=== PATIENT | female | born 1955 | race African-American/Black ===

== ENCOUNTER 2018-05-05 14:40 | Emergency (ER) | payer MEDICAID ==
[~2018-05-05] VITALS: Ht 172.7 cm; Wt 72.6 kg
[~2018-05-05 14:40] MED LIST: ACYCLOVIR 200200 MG PO; ALBUTEROL INH; CELEXA40 MG PO; FENOFIBRATE160 MG PO; LORAZEPAM 0.50.5 MG PO; NAPROSYN500 MG PO; PEPCID40 MG PO; PERCOCET 5-3251 EACH PO; PRAVASTATIN SOD10 MG; RANITIDINE 150150 MG PO; TESSALON PERLE100 M1 PO; TRICOR48 MG PO; ZOFRAN ODT4 MG BUCCAL
[2018-05-05] MEDS ORDERED: CYMBALTA30 MG PO (14:57)
[2018-05-05] MEDS ORDERED: CLARITIN10 MG PO (14:58)
[2018-05-05 15:28] LABS: ABSOLUTE EOSINOPHILS 0.2 thou/uL (0.0-0.7); ABSOLUTE LYMPHOCYTES 1.6 thou/uL (0.8-5.3); ABSOLUTE MONOCYTES 0.7 thou/uL (0.0-1.2); ABSOLUTE NEUTROPHILS 3.1 thou/uL (1.6-8.1); BASOPHILS 0.7 %; EOSINOPHILS 3.6 %; HEMATOCRIT 38.4 % (37.0-47.0); HEMOGLOBIN 13.1 gm/dL (12.0-15.0); LYMPHOCYTES 28.3 %; MCH 29.9 pg (26.0-34.0); MCV 88.1 fL (80.0-100.0); MONOCYTES 12.5 %; NUCLEATED RBCS 0 /100WBC; PLATELET COUNT* 245 thou/uL (150-400); POLYS 54.9 %; RBC 4.36 mil/uL (4.20-5.00); RDW-CV 12.9 % (10.5-14.5); WBC 5.7 thou/uL (4.0-11.0)
[2018-05-05 15:37] LABS: APTT 25.5 Seconds (25.0-31.3); PROTIME 10.2 Seconds (9.20-11.50)
[2018-05-05 15:43] LABS: CALCIUM 8.7 mg/dL (8.5-10.1); CREATININE 0.7 mg/dL (0.6-1.3); POTASSIUM 3.9 mmol/L (3.5-5.1)
[2018-05-05 15:48] LABS: ALBUMIN 3.8 g/dL (3.4-5.0); TOTAL BILIRUBIN 0.5 mg/dL (<0.1-1.0); TOTAL PROTEIN 7.5 g/dL (6.4-8.2)
[2018-05-05] MEDS ORDERED: ROBAXIN500 MG PO (16:29)
[2018-05-05 16:36] VITALS: BP 150/93
== END 2018-05-05 16:37 | disposition home or self-care (01) ==
LOC: M.ERS 14:40
PROVIDERS: Nurse Practitioner Family
DX: S20.01XA Contusion of right breast, initial encounter (principal); S50.02XA Contusion of left elbow, initial encounter; E78.00 Pure hypercholesterolemia, unspecified; K21.9 Gastro-esophageal reflux disease without esophagitis; F32.9 Major depressive disorder, single episode, unspecified; M79.7 Fibromyalgia; F41.9 Anxiety disorder, unspecified; K58.9 Irritable bowel syndrome, unspecified; Z98.890 Other specified postprocedural states; Z88.8 Allergy status to other drugs, medicaments and biological substances; M19.90 Unspecified osteoarthritis, unspecified site; W01.0XXA Fall on same level from slipping, tripping and stumbling without subsequent striking against object, initial encounter; Y93.89 Activity, other specified; Y92.89 Other specified places as the place of occurrence of the external cause; Y99.8 Other external cause status

== ENCOUNTER 2019-02-07 00:02 | Inpatient (IN) | payer MEDICAID ==
[~2019-02-07] VITALS: Ht 170.2 cm; Wt 72.9 kg
--- NOTE | ~2019-02-07 | PROC ---
[facility] [address] [facility] [place] [address] PROCEDURE REPORT Name: NAVEEN BACA Room: [address] IN M.R.#: [id number] Admission: 02/07/19 Attend Phys: Purnima Fonseca Discharge: 02/11/19 Date of : 57 Report #: [id number] THIS REPORT FOR: //name// For GI report, please see the Provation report in Perceptive 7 content. By: [facility] Center[facility] Records Staff JIM /SHERICE
[~2019-02-07 00:02] MED LIST changes: +CLARITIN10 MG PO; +CYMBALTA30 MG PO; +ROBAXIN500 MG PO
[2019-02-07 00:06] VITALS: BP 158/92
[2019-02-07 00:39] LABS: ABSOLUTE LYMPHOCYTES 1.1 thou/uL (0.8-5.3); ABSOLUTE MONOCYTES 0.6 thou/uL (0.0-1.2); BASOPHILS 0.6 %; HEMATOCRIT 41.2 % (37.0-47.0); HEMOGLOBIN 14.3 gm/dL (12.0-15.0); LYMPHOCYTES 23.1 %; MCH 30.7 pg (26.0-34.0); MCHC 34.7 g/dL (28.0-37.0); MCV 88.5 fL (80.0-100.0); MONOCYTES 12.6 %; MPV 8.8 fl. (7.2-11.1); NUCLEATED RBCS 0 /100WBC; PLATELET COUNT* 226 thou/uL (150-400); POLYS 62.7 %; RBC 4.66 mil/uL (4.20-5.00); RDW-CV 13.2 % (10.5-14.5); WBC 4.7 thou/uL (4.0-11.0)
[2019-02-07 00:42] LABS: ANION GAP 12 mmol/L (7-16); BUN 7 mg/dL (7-18); CALCIUM 9.7 mg/dL (8.5-10.1); CHLORIDE 99 mmol/L (98-107); CO2 26 mmol/L (21-32); CREATININE 0.8 mg/dL (0.6-1.3); GLUCOSE 131 mg/dL (70-99); POTASSIUM 3.2 mmol/L (3.5-5.1); SODIUM 137 mmol/L (136-145)
[2019-02-07 00:44] LABS: APTT 24.4 Seconds (25.0-31.3); PROTIME 10.3 Seconds (9.20-11.50)
[2019-02-07 00:53] LABS: ALBUMIN 4.2 g/dL (3.4-5.0); ALKALINE PHOSPHATASE 101 U/L (46-116); LIPASE 51 U/L (73-393); MAGNESIUM 1.5 mg/dL (1.8-2.4); NT-PRO BRAIN NAT PEPTIDE 29 pg/mL (<300); SGOT 192 U/L (15-37); SGPT 134 U/L (30-65); TOTAL PROTEIN 7.8 g/dL (6.4-8.2); TROPONIN-I LEVEL <0.06 ng/mL (<0.06)
[2019-02-07 02:00] VITALS: BP 154/88
--- NOTE | 2019-02-07 05:05 | NUR ---
PATIENT ADMITTED TO ROOM 105 FROM THE ER AT APPROXIMATELY 0230. VSS ON RA. PATIENT ORIENTED TO ROOM AND POLICIES. PAIN CONTROLLED AT THIS TIME. MEDICATION GIVEN IN THE ER. FALL EDUCATION GIVEN AND FALL AGREEMENT SIGNED. PATIENT VERBALIZED UNDERSTANDING. ASSESSMENT CHARTED. PATENT IS UP WITH SBA TO THE BATHROOM D/T HISTORY OF FALLS AT HOME WHEN SHE GETS DIZZY PER PATIENT. IV IN AC-SL. PATIENT INSTRUCTED TO USE CALL LIGHT WHEN NEEDING ASSISTANCE. HOURLY ROUNDS MADE. WILL CONTINUE WITH PLAN OF CARE AND NURSING TO MONITOR.
[2019-02-07 07:30] VITALS: BP 130/85
--- NOTE | 2019-02-07 11:18 | EKG ---
[place] [address] ELECTROCARDIOGRAM REPORT Name: NAVEEN BACA Room: [address] ADM IN .R.#: [id number] Admission: 02/07/19 Attend Phys: Purnima Fonseca Discharge: Date of : 57 Report #: [id number] THIS REPORT FOR: //name// [facility] ED Test Date: 2019-02-07 Test Time: 00:16:29 Pat Name: NAVEEN BACA Department: Room: [facility] Gender: F Member Of Parliament: [place] : 1955 Requested By: Arash Alvarez Order Number: [id number] MD: Keshawn Torres Measurements Intervals [place] Rate: 88 P: 70 MA: 139 QRS: -87 QRSD: 137 T: 34 QT: 478 QTc: 579 Interpretive Statements Sinus rhythm RBBB and LAFB Electronically Signed On 02-07-2019 11:18:27 CDT by Keshawn Torres [email or web address] <ELECTRONICALLY SIGNED> By: Keshawn Torres MD, [facility] 02/07/19 1118 0016 0016 Keshawn Torres MD, FACC /EPI
[2019-02-07 14:48] LABS: % SATURATION 30 % (20-39); IRON 80 ug/dL (50-175)
[2019-02-07 16:55] VITALS: BP 145/90
--- NOTE | 2019-02-07 17:41 | NUR ---
PT A&Ox4. VITALS STABLE. NEW IV PLACED IN R FA, PATENT. HIGH FALL RISK DUE TO CURRENT FALLS AT HOME, REFUSES BED ALARM. GETTING AROUND WELL. DENIED NAUSEA/VOMITING. TOLERATING FOOD. PAIN PARIALLY CONTROLLED WITH OXY IR AND TYLENOL. CALL LIGHT WITHIN REACH. WILL CONTINUE TO MONITOR.
[2019-02-07 21:00] VITALS: BP 138/93
[2019-02-07 22:07] LABS: IgA 249 mg/dL (87-352); IgG 938 mg/dL (700-1600); IgM 62 mg/dL (26-217)
--- NOTE | 2019-02-08 06:20 | NUR ---
PT ALERT AND ORIENTED. O2 SAT 97% RA. MEDS GIVEN ORDERED. CHRONIC BACK PAIN CONTROLLED WITH OXY IR. PT REFUSED BED ALARM. NO NAUSEA OR VOMITING THIS SHIFT. ATIVAN GIVEN PER PT REQUEST FOR ANXIETY. WILL CONTINUE TO MONITOR.
[2019-02-08 08:00] VITALS: BP 123/86
[2019-02-08 08:09] LABS: HEPATITIS B SURFACE AG Negative (Negative)
[2019-02-08 14:09] LABS: ANA INTERPRETATION Positive (Negative)
[2019-02-08 16:00] VITALS: BP 126/80
--- NOTE | 2019-02-08 18:16 | NUR ---
PT A&Ox4. VITALS STABLE. IV PATENT. EGD COMPLETED. TOLERATING FOOD, WILL BE NPO AFTER MIDNIGHT FOR FOLLOWING GI PROCEDURE TOMORROW. HIGH FALL RISK BUT REFUSES BED ALARM. GETS AROUND WELL. PAIN CONTROLLED. DENIED N/V. 100% ON RA. CALL LIGHT WITHIN REACH. WILL CONTINUE TO MONITOR.
--- NOTE | 2019-02-08 18:57 | NUR ---
SAW PT. SHE HAD JUST RETURNED FROM EGD BUT WAS ALERT AND ORIENTED. STATED SHE LIVES BY HERSELF. NO USE OF DME. SHE HAS 2 CANES BUT THEY NEED TIPS. ALSO HAS A NEBUIZER. NEEDS ALBUTEROL ORDERED FOR IT. SHE SAID SHE IS INDEPENDENT AT HOME. SHE COOKS BUT NOTHING HAS SOUNDED GOOD TO HER LATELY. SHE CANNOT CLEAN WELL BECAUSE SHE CANNOT STAND UP FOR VERY LONG AMTS OF TIME. SHE CANNOT DRIVE HER CAR AT THIS TIME BECAUSE IT NEEDS REPAIRS. HER DAUGHTERS ARE SUPPORTIVE. SHE IS LOOKING INTO THE WHOLE PERSON TO SEE IF HER DAUGHTER CAN BE HER KITCHEN CHEF AND GET PAID FOR IT. SHE MAY BE INTERESTED IN APPLICATION FOR CAREGIVER THRU MEDICAID IF THE WHOLE PERSON DOESN'T WORK OUT. GAVE HER COMM.RESOURCE INFORMATION ALONG WITH HOUSING AUTH.NUMBER FOR [facility]. SHE WOULD LIKE TO SEE ABOUT MOVING. PT.PLANS TO GO HOME ALONE AT DISCHARGE. NO HX OF HH.
[2019-02-08 20:00] VITALS: BP 109/74
[2019-02-09 00:07] VITALS: BP 99/66
[2019-02-09 04:04] LABS: HEMATOCRIT 38.7 % (37.0-47.0); HEMOGLOBIN 12.9 gm/dL (12.0-15.0); MCH 30.5 pg (26.0-34.0); MCHC 33.3 g/dL (28.0-37.0); MCV 91.6 fL (80.0-100.0); MPV 9.7 fl. (7.2-11.1); RBC 4.23 mil/uL (4.20-5.00); RDW-CV 13.1 % (10.5-14.5); WBC 6.9 thou/uL (4.0-11.0)
[2019-02-09 04:09] LABS: PROTIME 10.6 Seconds (9.20-11.50)
[2019-02-09 04:28] LABS: ALBUMIN 3.4 g/dL (3.4-5.0); CALCIUM 9.2 mg/dL (8.5-10.1); CREATININE 0.8 mg/dL (0.6-1.3); MAGNESIUM 1.9 mg/dL (1.8-2.4); POTASSIUM 3.9 mmol/L (3.5-5.1); TOTAL BILIRUBIN 0.6 mg/dL (<0.1-1.0); TOTAL PROTEIN 6.8 g/dL (6.4-8.2)
--- NOTE | 2019-02-09 06:47 | NUR ---
Alert and oriented x 4. Vitals have been stable. She did complain of cough and orders were recieved. She is up independently in the room. She has had nothing by mouth since midnight except reglan and natasha andino with a sip of water.
[2019-02-09 08:00] VITALS: BP 124/80
[2019-02-09 11:11] LABS: CERULOPLASMIN 20.6 mg/dL (19.0-39.0)
--- NOTE | 2019-02-09 16:52 | NUR ---
PATIENT ALERT AND ORIENTED X 4. VITAL SIGNS STABLE ON ROOM AIR. UP WITH ASSISTANCE IN ROOM. IV PATENT AND SALINE LOCKED. DENIES PAIN AND NAUSEA AT THIS TIME. PATIENT STATES SHE ONLY HAS PAIN WITH MOVEMENT. HOURLY ROUNDS MAINTAINED THROUGHOUT THE SHIFT. CALL LIGHT WITHIN REACH. NURSING WILL CONTINUE TO MONITOR.
[2019-02-09 20:45] VITALS: BP 118/77
--- NOTE | 2019-02-10 06:04 | NUR ---
PATIENT HAS SLEPT WELL THROUGHOUT THE NIGHT. VSS ON RA. NO C/O PAIN. MEDICATIONS GIVEN ORDERED AND CHARTED. PATIENT HAS REMAINED ON CLEAR LIQUID DIET AND IS CURRENTLY ON BOWEL PREP. IV IN RIGHT FOREARM-SL. PATIENT INSTRUCTED TO USE CALL LIGHT WHEN NEEDING ASSISTANCE. HOURLY ROUNDS MADE. WILL CONTINUE WITH PLAN OF CARE AND NURSING TO MONITOR.
[2019-02-10 09:05] VITALS: BP 106/78
--- NOTE | 2019-02-10 18:44 | NUR ---
PATIENT PLEASANT AND COOPERATIVE W/ ASSESS AND CARES. CONVERSANT. DENIES PAIN. INDEP IN RM, AMBULATING IN HALLS W/ STEADY GAIT, NO ASST DEVICES. IV SITE NOTED WNL. STATES SLEEPING WELL THIS AFTERNOON. RM DARKENED. HOB UP TO PATIENT COMFORT. CALL LIGHT IN REACH. TV ON. DTR PRESENT IN RM AT THIS TIME. HRLY ROUNDS DONE. NO N/V. STATES BOWEL PREP IS WORKING, STATES BM CLEAR THIS AFTERNOON. CLEAR LIQS JOANNE THIS SHIFT. PATIENT VERBALIZES UNDERSTANDING OF NPO AFTER MN TONIGHT FOR COLONOSCOPY TOMORROW. ~TJRN
[2019-02-10 19:40] VITALS: BP 108/77
[2019-02-11 04:39] LABS: HEMATOCRIT 41.5 % (37.0-47.0); MCH 30.5 pg (26.0-34.0); MCHC 33.8 g/dL (28.0-37.0); MCV 90.3 fL (80.0-100.0); MPV 9.1 fl. (7.2-11.1); RBC 4.6 mil/uL (4.20-5.00); RDW-CV 13.2 % (10.5-14.5); WBC 6.8 thou/uL (4.0-11.0)
[2019-02-11 04:56] LABS: ALBUMIN 3.9 g/dL (3.4-5.0); CALCIUM 9.7 mg/dL (8.5-10.1); CREATININE 0.8 mg/dL (0.6-1.3); MAGNESIUM 1.9 mg/dL (1.8-2.4); POTASSIUM 3.3 mmol/L (3.5-5.1); TOTAL BILIRUBIN 0.8 mg/dL (<0.1-1.0); TOTAL PROTEIN 7.5 g/dL (6.4-8.2)
[2019-02-11 05:12] VITALS: BP 108/77
--- NOTE | 2019-02-11 05:44 | NUR ---
PT ALERT AND ORIENTED. VSS ON RA. UP AD ANGELY. ASSESSMENT DOCUMENTED. NPO AFTER MN. COLONSCOPY THIS AM, NO SPECIFIC TIME YET. AWAITING ORDERS TO SIGN CONSENTS. FAMILY VISITED BEGINNING OF SHIFT. PRE OP CHECKLIST DONE. MEDS GIVEN PER EMAR. TYLENOL GIVEN FOR JIMÉNEZ. RELIEF NOTED. CALL LIGHT WITHIN REACH. HOURLY ROUNDINGS MADE. WILL CONTINUE TO MONITOR.
[2019-02-11] MEDS ORDERED: REGLAN 10 MG TA10 MG PO (08:51)
[2019-02-11 09:00] VITALS: BP 105/67
--- NOTE | 2019-02-11 10:07 | CON ---
[address] [address] CONSULTATION Name: NAVEEN BACA Room: [address] IN M.R.#: [id number] Admission: 02/07/19 Attend Phys: Purnima Fonseca Discharge: Date of : 57 Report #: [id number] THIS REPORT FOR: //name// CC: SRAVANTHI Hunter DICTATED BY: Mehnaz HOLLISP DATE OF SERVICE: 02/07/2019 Please note at the time of this dictation, the patient was seen and physically examined by myself. REASON FOR CONSULTATION: Nausea, vomiting, and diarrhea. HISTORY OF PRESENT ILLNESS: This is a 63-year-old female who presented to the Emergency Room with having complaints of shortness of air for about a week. She also was having nausea, vomiting and some diarrhea. She states her diarrhea she was going very frequently she states every 15-20 minutes; however, since she has been here, she has not had any further bowel movements. She denied any bright red blood or any black vomitus and her stools were normal in color as well. The patient does admit that she has been taking some NSAIDs. She is very vague in saying how much she does take. She would take 2-4 maybe a couple of times a day for this discomfort that she has been experiencing. She states she has ongoing acid reflux that worsened. She has noted that she has been having some dysphagia since she has been here as well. The patient does have a history of alcohol abuse and still drinks on a regular basis. The patient was last seen by us back in 2014 for some abdominal discomfort at that time, her ultrasound showed no biliary or gallbladder disease, did show a fatty liver; however, at that time. The patient states she did have a colonoscopy several years before her last admission at [facility] and we will attempt to get those records. She states she did have a history of polyps and we will try to obtain those to see what type of polyps she had and when was her last colon. ALLERGIES: STATINS. MEDICATIONS: From home include; lorazepam, acyclovir, albuterol, fenofibrate, Zofran, Cymbalta and Claritin. She had been taking ranitidine in the past, but quit taking that. PAST MEDICAL HISTORY: Hyperlipidemia, gastroesophageal reflux disease, depression, fibromyalgia, irritable bowel syndrome, shingles, anxiety, and osteoarthritis. PAST SURGICAL HISTORY: [place] [address] CONSULTATION Name: NAVEEN BACA Room: [address]#: [id number] Admission: 02/07/19 Attend Phys: Purnima Fonseca Discharge: Date of : 57 Report #: [id number] FAMILY AND SOCIAL HISTORY: Questionable, mother with colon versus cervical cancer. She is given 2 different answers. She is single and lives alone. Denies any tobacco use or recreational drug use; however, she does drink on a very consistent basis. She states mainly it is wine and occasionally, she will do some hard liquor shots. REVIEW OF SYSTEMS: Twelve-point review of systems is essentially negative except what is mentioned in the history of present illness. PHYSICAL EXAMINATION: VITAL SIGNS: Temperature 36.6, pulse 87, respirations 17, blood pressure 130/85. HEART: Regular rate and rhythm. LUNGS: Clear. ABDOMEN: Soft, positive bowel sounds in all 4 quadrants with some tenderness noted in the epigastric area. LABORATORY DATA: Hemoglobin is 14.3, white count 4.7, platelets 226. PT 10.3, INR is 1, GFR is 88. Total bilirubin is 1, alkaline phosphatase 101, ALT 134, AST is 192. Chest x-ray was completely normal. IMPRESSION: 1. Nausea, vomiting. 2. Diarrhea. 3. Epigastric pain. 4. Dysphagia. 5. Nonsteroidal anti-inflammatory drug use. 6. Elevated LFTs. 7. Family history, mother cervical or colon cancer. 8. Current history of alcohol abuse. PLAN: 1. EGD tomorrow with Dr. Ang. 2. Obtain her records from a colonoscopy with path. 3. We will obtain a liver workup labs including alpha-1 antitrypsin, AFP, acute hepatitis panel, CHANTELLE, ASMA, AMA, ____, quantitative IgA, quantitative IgG and quantitative IgM, ferritin, iron and TIBC. 4. Further recommendations to be made once Dr. Ang sees the patient and [place] [address] CONSULTATION Name: NAVEEN BACA Darrell Room: [address] IN [facility]#: [id number] Admission: 02/07/19 Attend Phys: Purnima Fonseca Discharge: Date of : 57 Report #: [id number] Thank you for allowing us to participate in this patient's care. Please do not hesitate to call with any questions in regard to this consult. <ELECTRONICALLY SIGNED> By: Stephane Ang DO 02/11/19 1007 1305 0002Stephane Ang DO /nt
--- NOTE | 2019-02-11 12:52 | NUR ---
ESCORTED OUT OF RM PER WC TO SURGERY FOR COLONOSCOPY PER SURGERY STAFF. ALERT AND ORIENTED.~TJRN
[2019-02-11 14:53] VITALS: BP 105/67
[2019-02-11 14:57] VITALS: BP 105/67
[2019-02-11 17:14] VITALS: BP 105/67
--- NOTE | 2019-02-11 18:30 | NUR ---
DISCHARGE INSTRUCTIONS GIVEN TO PATIENT. PATIENT STATES VERBALLY OF UNDERSTANDING OF INSTRUCTIONS AND F/Us. IV DISCONTINUED, CATH TIP INTACT, COTTON BALL/TAPE APPLIED TO SITE. PATIENT DRESSES INDEP. BELONGINGS GATHRERED PER PATIENT. FLU SHOT GIVEN, SEE MAR. COPY OF DISCHARGE INSTRUCTIONS AND ORIG RX SCRIPT GIVEN TO PATIENT. PATIENT STATES THAT HER DTR WILL BE PICKING HER UP. CURRENTLY AWAITING RIDE HOME. DENIES PAIN/N/V AT THIS TIME. NO ACUTE DISTRESS NOTED. PATIENT STATES JOANNE MEAL AFTER COLONOSCOPY WITHOUT ISSUE. ALERT AND ORIENTED. ~TJRN
[2019-02-11 20:50] VITALS: BP 105/67
--- NOTE | 2019-02-14 10:07 | PATH ---
[facility] [address] [place] [address] PATHOLOGY RPT PROCEDURE Name: ARACELY BACA Darrell Room: [address] IN M.R.#: [id number] Admission: 02/07/19 Date of : 57 Discharge: 02/11/19 Report #: [id number] Path Case #: [id number] [facility] Accession Number: [id number] . 01 Material submitted: . PART A: colon - DESCENDING COLON POLYP. Modifiers: descending PART B: colon - TRANSVERSE COLON BIOPSY R/O MICRO ULCERCOLITIS. Modifiers: transverse PART C: colon - TRANSVERSE COLON POLYP. Modifiers: transverse . 01 Clinical history: . None provided . 02 Diagnosis: A. Descending colon polyp: - Tubular adenoma, negative for high-grade dysplasia. . B. Transverse colon biopsy: - Foca/minimal active colitis, negative for granulomas, viral inclusions and dysplasia. See comment. . C. Transverse colon polyp: - Tubular adenoma, negative for high-grade dysplasia. (PATRIA:bernadine; 02/13/2019) QMS 02/13/2019 1425 Local . 02 Comment: Sections of the transverse colon biopsy (B) show mostly normal colonic mucosa with scattered superficial fresh hemorrhage and a single isolated crypt abscess, the significance of which is uncertain and is favored to be of no clinical significance, possibly related to oral sodium phosphate prep. (PATRIA:bernadine; 02/13/2019) . 02 Electronically signed: . Leonel Vasquez MD, Pathologist NPI- [id number] . 01 Gross description: . A. Received in formalin labeled "Aracely Baca, descending colon polyp," is a single segment of tovar soft tissue measuring 0.6 cm in maximum dimension. The specimen is entirely submitted in cassette A1. . B. Received in formalin labeled "Aracely Baca, transverse colon biopsy," and additionally labeled on the requisition as "rule out micro ulcer colitis," is a single segment of tovar soft tissue measuring 0.7 cm in maximum dimension. The specimen is submitted entirely in cassette [place] [address] PATHOLOGY RPT PROCEDURE Name: ARACELY BACA Room: [address] DIS IN M.R.#: [id number] Admission: 02/07/19 Date of : 57 Discharge: 02/11/19 Report #: [id number] Path Case #: [id number] C. Received in formalin labeled "Shashank, Aracely, transverse colon polyp," is a 0.8 x 0.5 x 0.5 cm polypoid piece of tovar soft tissue. The margin is inked and the tissue is sectioned perpendicular to the margin and submitted entirely in cassette C1. (TSD; 02/12/2019) TOB/TOB 02/12/2019 1853 Local . 02 Pathologist provided ICD-10: D12.4, K52.9, D12.3 . 02 CPT . 265588, 130479, 100901 Specimen Comment: A courtesy copy of this report has been sent to Specimen Comment: [phone], , . Specimen Comment: Report sent to ,DR FRANKLIN / DR LE Specimen Comment: Report sent to Performed at: 01 [facility] [address] [place] [address] [address], [place], [place] [id number] MD Param Hutchinson MD Phone: [phone] Performed at: [address] [facility] [address] [address], [place], [place] [id number] MD Leonel Vasquez MD Phone: [phone]
== END 2019-02-11 20:30 | disposition home or self-care (01) | DRG 394 ==
LOC: M.ERS 00:02 → M.ORTHSURG 01:10 → M.TBA-ER 01:10 → M.ORTHSURG 01:53
PROVIDERS: Family Medicine; Internal Medicine; Internal Medicine Gastroenterology; Nurse Practitioner Adult Health; ADMIT Internal Medicine
PROC: 0DJ08ZZ Inspection of Upper Intestinal Tract, Via Natural or Artificial Opening Endoscopic (ICD-10-PCS; principal; 2019-02-08)
PROC: 0DBL8ZZ Excision of Transverse Colon, Via Natural or Artificial Opening Endoscopic (ICD-10-PCS; 2019-02-11)
PROC: 0DBM8ZZ Excision of Descending Colon, Via Natural or Artificial Opening Endoscopic (ICD-10-PCS; 2019-02-11)
PROC: 3E0234Z Introduction of Serum, Toxoid and Vaccine into Muscle, Percutaneous Approach (ICD-10-PCS; 2019-02-11)
DX: K63.5 Polyp of colon (principal); E87.2 Acidosis; J45.901 Unspecified asthma with (acute) exacerbation; K52.9 Noninfective gastroenteritis and colitis, unspecified; G89.29 Other chronic pain; E78.00 Pure hypercholesterolemia, unspecified; K21.9 Gastro-esophageal reflux disease without esophagitis; F32.9 Major depressive disorder, single episode, unspecified; M79.7 Fibromyalgia; K58.9 Irritable bowel syndrome, unspecified; M19.90 Unspecified osteoarthritis, unspecified site; F41.9 Anxiety disorder, unspecified; R13.10 Dysphagia, unspecified; E78.5 Hyperlipidemia, unspecified; Z60.2 Problems related to living alone; R79.89 Other specified abnormal findings of blood chemistry; F10.10 Alcohol abuse, uncomplicated; K59.09 Other constipation; K76.0 Fatty (change of) liver, not elsewhere classified; K31.84 Gastroparesis; Z79.899 Other long term (current) drug therapy; Z88.8 Allergy status to other drugs, medicaments and biological substances; Z23 Encounter for immunization

== ENCOUNTER 2019-04-25 15:46 | Inpatient (IN) | payer MEDICAID ==
[~2019-04-25] VITALS: Ht 175.3 cm; Wt 69.6 kg
[~2019-04-25 15:46] MED LIST changes: +REGLAN 10 MG TA10 MG PO
[2019-04-25 15:48] VITALS: BP 116/85
[2019-04-25 16:25] LABS: ABSOLUTE EOSINOPHILS 0.1 thou/uL (0.0-0.7); ABSOLUTE LYMPHOCYTES 0.8 thou/uL (0.8-5.3); ABSOLUTE MONOCYTES 0.7 thou/uL (0.0-1.2); ABSOLUTE NEUTROPHILS 2.6 thou/uL (1.6-8.1); BASOPHILS 0.9 %; EOSINOPHILS 1.8 %; HEMATOCRIT 40.3 % (37.0-47.0); HEMOGLOBIN 13.7 gm/dL (12.0-15.0); MCH 30.2 pg (26.0-34.0); MCHC 33.9 g/dL (28.0-37.0); MONOCYTES 15.8 %; MPV 9.3 fl. (7.2-11.1); NUCLEATED RBCS 0 /100WBC; PLATELET COUNT* 161 thou/uL (150-400); POLYS 61.5 %; RBC 4.53 mil/uL (4.20-5.00); WBC 4.2 thou/uL (4.0-11.0)
[2019-04-25 16:34] LABS: CALCIUM 9.2 mg/dL (8.5-10.1)
[2019-04-25 16:43] LABS: POTASSIUM 2.2 mmol/L (3.5-5.1)
[2019-04-25 16:44] LABS: INR 1.1; PROTIME 11.1 Seconds (9.20-11.50)
[2019-04-25 16:47] LABS: ALBUMIN 3.7 g/dL (3.4-5.0); MAGNESIUM 1.6 mg/dL (1.8-2.4); TOTAL BILIRUBIN 1.3 mg/dL (<0.1-1.0)
[2019-04-25 17:59] VITALS: BP 118/88
[2019-04-25 18:10] VITALS: BP 107/83
[2019-04-25 19:45] VITALS: BP 92/70
[2019-04-26] VITALS: BP 116/59
[2019-04-26 04:00] VITALS: BP 90/54
--- NOTE | 2019-04-26 05:24 | NUR ---
PT SLEPT ON AND OFF THIS SHIFT. ASSESSMENT DOCUMENTED. MEDS GIVEN PER E-JUL. IV PATENT, FLUIDS INFUSING. PT REPORTED PAIN AND NAUSEA, NOTIFIED, ORDERS RECIEVED. WILL CONTINUE WITH PLAN OF CARE.
[2019-04-26 07:40] VITALS: BP 86/57
[2019-04-26 08:23] VITALS: BP 91/63
[2019-04-26 12:21] VITALS: BP 89/65
--- NOTE | 2019-04-26 14:37 | EKG ---
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 04/26/19 1437 1554 1554 Keshawn Torres MD, [facility] /EPI
[2019-04-26] MEDS ORDERED: POTASSIUM20 PO (15:16)
[2019-04-26] MEDS ORDERED: MAGNESIUM400 MG PO (15:17)
[2019-04-26 15:23] VITALS: BP 89/65
--- NOTE | 2019-04-26 17:00 | NUR ---
ORDER RECEIVED TO DISCHARGE [facility] TO SELF CARE. MED REC, MEDICAITON EDUCATION, STROKE EDUCATION, AND NEED FOR FOLLOW UP WITH PROIMARY CARE PROVIDER COVERED AND STATED UNDERSTOOD BY PATIENT. IV AND TELEMETRY PACK EREMOVED. HOURLY ROUNDING COMPLETED FOR [facility]. ZTRIP KAUSHIK WAS CALLED FOR SAMI SHE WAS HAVING DIFFICULTY FINDING A RIDE HOME. TAXI ARRIVED AT 16:55 TO TRANSPORT PATIENT HOME.
--- NOTE | 2019-04-28 10:25 | CON ---
[address] [address] CONSULTATION Name: NAVEEN BACA Darrell Room: [address] IN M.R.#: [id number] Admission: 04/25/19 Attend Phys: Yuliet Jennings Discharge: 04/26/19 Date of : 57 Report #: [id number] THIS REPORT FOR: //name// CC: Margarette Chen INDICATION: Chest pain. HISTORY OF PRESENT ILLNESS: The patient is a 63-year-old -Liberian female with no prior history of coronary artery disease. She was admitted to the hospital with multiple complaints including nausea, diarrhea and chest discomfort. She states that she had the chest pain for several days prior to coming to the hospital and all day yesterday. She describes it as a pressure or tightness that is worse with activity and improves with rest. It occurs at rest, associated with shortness of breath, nausea and sweating aggravated by food and radiates into the arm and neck with no improvement with nitroglycerin. Cardiac evaluation several years ago was unremarkable. She states she has a history of hypertriglyceridemia. There is a family history of coronary artery disease. She denies any history of hypertension. She has no personal history of stroke or myocardial infarction. SOCIAL HISTORY: She reports heavy alcohol use. She is . She does not smoke. ALLERGIES: STATINS, WHICH CAUSES MUSCLE CRAMPING. HOME MEDICATIONS: Acyclovir 200 mg p.o. daily, Cymbalta 30 mg daily, fenofibrate 160 mg daily, Claritin 10 mg daily, lorazepam 1 mg b.i.d. p.r.n., Zofran 4 mg b.i.d. p.r.n., albuterol 2 puffs b.i.d. p.r.n. REVIEW OF SYSTEMS: A 14-point review of systems positive for cough, productive of clear sputum, history of pneumonia, history of wheezing, chest discomfort as outlined above, vomiting without hematemesis, seasonal allergies, medical allergies as outlined above, history of depression and anxiety. She has arthritis. She has loss of vision. She has decreased hearing. Otherwise, 14-point review of systems unremarkable. PHYSICAL EXAMINATION: VITAL SIGNS: Stable. Blood pressure 91/63, pulse 68 and regular. GENERAL: This is a thin, pleasant -Liberian female, in no distress. Mood and affect appropriate. HEENT: Extraocular muscles intact. Mucous membranes are moist. NECK: Shows no jugular venous distention. There [place] [address] CONSULTATION Name: NAVEEN BACA Room: [address] IN M.R.#: [id number] Admission: 04/25/19 Attend Phys: Yuliet Jennings Discharge: 04/26/19 Date of : 57 Report #: [id number] CHEST: Reveals clear lung mcnally without wheezes or rales. CARDIOVASCULAR: Reveals regular rhythm, normal S1 and S2. I do not appreciate gallop or murmur. ABDOMEN: Reveals normal bowel sounds. The abdomen is soft, nontender. EXTREMITIES: Shows no edema. Peripheral pulses 2+ and easily palpable. SKIN: Warm and dry. LABORATORY DATA: A 12-lead EKG shows sinus rhythm with right bundle and left anterior fascicular block that is not new. There are no acute ST segment abnormalities. Troponins are less than 0.06. IMPRESSION AND RECOMMENDATIONS: 1. Atypical chest pain. Doubt this represents acute coronary syndrome. The pain sounds more musculoskeletal. Would treat with nonsteroidal anti-inflammatory. 2. Hypertriglyceridemia. Continue the patient's fenofibrate. 3. Heavy alcohol use. From a cardiac standpoint, the patient appears stable for discharge. <ELECTRONICALLY SIGNED> By: Kev Jennings MD, FACC 04/28/19 1025 1502 0217Kev Jennings MD, FACC /nt
== END 2019-04-26 17:12 | disposition home or self-care (01) | DRG 313 ==
LOC: M.ERS 15:46 → M.TBA-ER 17:18 → M.2W 17:18
PROVIDERS: Emergency Medicine Emergency Medical Services; ADMIT Internal Medicine
DX: R07.89 Other chest pain (principal); E87.1 Hypo-osmolality and hyponatremia; F41.9 Anxiety disorder, unspecified; F32.9 Major depressive disorder, single episode, unspecified; E78.00 Pure hypercholesterolemia, unspecified; K21.9 Gastro-esophageal reflux disease without esophagitis; M79.7 Fibromyalgia; K58.9 Irritable bowel syndrome, unspecified; M19.90 Unspecified osteoarthritis, unspecified site; E87.6 Hypokalemia; E78.1 Pure hyperglyceridemia; E87.8 Other disorders of electrolyte and fluid balance, not elsewhere classified; K70.0 Alcoholic fatty liver; E78.5 Hyperlipidemia, unspecified; Z82.49 Family history of ischemic heart disease and other diseases of the circulatory system; Z88.8 Allergy status to other drugs, medicaments and biological substances; Z79.899 Other long term (current) drug therapy; Z23 Encounter for immunization

== ENCOUNTER 2019-12-27 20:05 | Inpatient (IN) | payer MEDICAID ==
[~2019-12-27] VITALS: Ht 170.2 cm; Wt 64.9 kg
--- NOTE | ~2019-12-27 | CON ---
[address] [address] CONSULTATION Name: NAVEEN BACA Room: [address] [place]#: [id number] Admission: 12/27/19 Attend Phys: Josue Frias MD Discharge: Date of : 57 Report #: [id number] THIS REPORT FOR: //name// cc: Margarette Jacobs MD, Linda MD ~ THIS REPORT FOR: //name// CC: Josue Jacobs HISTORY OF PRESENT ILLNESS: This is a pleasant 64-year-old female with past medical history significant for hyperlipidemia, gastroesophageal reflux disease, depression, fibromyalgia, IBS, shingles, and osteoarthritis. She presents for evaluation of abdominal pain, nausea, vomiting. The patient reports these symptoms began 3-4 days back and the patient had been vomiting 4-5 times per day without the ability to keep anything down including fluids. She reports epigastric abdominal pain associated with mild episode of diarrhea. She reports similar episode last year, but was doing well in the interim. She does report subjective sensation of fever and chills. Denies any weight loss. The patient denies any hematemesis, hematochezia or other alarm symptoms. PAST MEDICAL HISTORY: Hyperlipidemia, gastroesophageal reflux disease, depression, fibromyalgia, IBS, shingles, anxiety, osteoarthritis. PAST SURGICAL HISTORY: History of tubal ligation. SOCIAL HISTORY: The patient reports taking alcohol about 1-2 times per week. Denies recreational drug use. FAMILY HISTORY: The patient is not sure if her mother had colon versus cervical cancer. REVIEW OF SYSTEMS: Comprehensive 10-point review of systems is negative except for what was mentioned in the HPI. PHYSICAL EXAMINATION: VITAL SIGNS: Temperature 36.6, pulse rate 64, respirations 18, blood pressure 111/79. GENERAL: The patient is alert, awake, oriented x 3. HEENT: Pupils are equal, round, reactive to light and accommodation. Mucous membranes are moist. There is no congestion. LUNGS: Clear to auscultation bilaterally. CARDIOVASCULAR: Rate and rhythm regular, S1, S2 present. ABDOMEN: Soft. There is no distention, guarding or rigidity. EXTREMITIES: Warm and well perfused. There is no edema. SKIN: [place] [address] CONSULTATION Name: NAVEEN BACA [address] [id number] Admission: 12/27/19 Attend Phys: Josue Frias MD Discharge: Date of : 57 Report #: [id number] LABORATORY DATA: WBC count 4.2, hemoglobin 12.0, hematocrit 35.5, platelet count 163. Sodium 140, potassium 4.4, chloride 107, bicarbonate 23, BUN 4, creatinine 0.7. CT abdomen and pelvis unremarkable. ASSESSMENT AND PLAN: This is a pleasant 64-year-old female with history outlined above, presenting for intractable nausea and vomiting that seems to have subsided at this point. I would advance the patient's diet and see how she tolerates it. The patient did have an EGD last year. This was performed on 02/08/2019. The EGD demonstrated a small amount of food in the stomach and duodenum and was otherwise negative. The patient is able to tolerate a diet. We will set her up for an outpatient gastric emptying study to rule out gastroparesis. Thank you for this consultation. By: 1036 [id number] Yanes MD /nt
[~2019-12-27 20:05] MED LIST changes: +MAGNESIUM400 MG PO; +POTASSIUM20 PO
[2019-12-27 20:14] VITALS: BP 140/106
[2019-12-27] MEDS ORDERED: SEROPHENE50 MG PO (20:24)
[2019-12-27] MEDS ORDERED: VITAMIN D310 MCG PO (20:24)
[2019-12-27] MEDS ORDERED: ZOFRAN4 MG PO (20:25)
[2019-12-27 20:41] LABS: URINE BILIRUBIN NEGATIVE (Negative); URINE BLOOD NEGATIVE (Negative); URINE COLOR YELLOW; URINE GLUCOSE-RANDOM NEGATIVE (Negative); URINE KETONES 1+ (Negative); URINE LEUKOCYTES-REFLEX NEGATIVE (Negative); URINE NITRITE-REFLEX POSITIVE (Negative); URINE PROTEIN 1+ (Negative); URINE UROBILINOGEN 0.2 E.U./dl (0.2-1.0)
[2019-12-27 20:42] LABS: URINE CLARITY HAZY
[2019-12-27 20:42] LABS: ABSOLUTE LYMPHOCYTES 0.7 thou/uL (0.8-5.3); ABSOLUTE MONOCYTES 0.9 thou/uL (0.0-1.2); ABSOLUTE NEUTROPHILS 7.5 thou/uL (1.6-8.1); BASOPHILS 0.3 %; EOSINOPHILS 0.1 %; HEMATOCRIT 41.6 % (37.0-47.0); HEMOGLOBIN 14.7 gm/dL (12.0-15.0); LYMPHOCYTES 7.3 %; MCH 31.3 pg (26.0-34.0); MCHC 35.3 g/dL (28.0-37.0); MCV 88.8 fL (80.0-100.0); MONOCYTES 9.4 %; MPV 8.6 fl. (7.2-11.1); NUCLEATED RBCS 0 /100WBC; PLATELET COUNT* 229 thou/uL (150-400); POLYS 82.9 %; RBC 4.68 mil/uL (4.20-5.00); RDW-CV 12.7 % (10.5-14.5); WBC 9.1 thou/uL (4.0-11.0)
[2019-12-27 20:45] LABS: BACTERIA-REFLEX >30 Many /HPF (None Seen); CASTS None Seen /LPF (None Seen); CRYSTALS None Seen /LPF (None Seen); MUCUS 0-3 Light strn/LPF (None Seen); SQUAMOUS 0-3 Few /LPF (0-3); URINE RBC None Seen /HPF (0-2); URINE WBC-REFLEX 6-15 Few /HPF (0-5)
[2019-12-27 20:51] LABS: CALCIUM 9.4 mg/dL (8.5-10.1); CREATININE 1.1 mg/dL (0.6-1.3); POTASSIUM 3.3 mmol/L (3.5-5.1)
[2019-12-27 20:55] LABS: ALBUMIN 4.4 g/dL (3.4-5.0); MAGNESIUM 1.6 mg/dL (1.8-2.4); TOTAL BILIRUBIN 1.6 mg/dL (<0.1-1.0); TOTAL PROTEIN 8.5 g/dL (6.4-8.2)
[2019-12-27 21:24] LABS: AMP/METHAMP Negative (Negative); BARBITURATES Negative (Negative); BENZODIAZEPINES Negative (Negative); COCAINE Negative (Negative); METHADONE Negative (Negative); OPIATES Negative (Negative); PCP Negative (Negative); THC Negative (Negative)
[2019-12-27] MEDS ORDERED: BACTRIM DS TAB1 EACH PO (23:22)
[2019-12-27] MEDS ORDERED: ZOFRAN ODT4 MG PO (23:22)
[2019-12-27] MEDS ORDERED: HYDROCODON-ACE1 EAC8 PO (23:22)
[2019-12-27 23:37] VITALS: BP 123/85
[2019-12-28 02:10] VITALS: BP 103/63
[2019-12-28 03:00] VITALS: BP 135/88
--- NOTE | 2019-12-28 07:44 | NUR ---
RECEIVED REPORT FROM ALEXANDER MORALES. PT TRANSFERRED TO 231.PT A&OX4. VSS. ADMISSION HISTORY & PHYSICAL ASSESSMENT COMPLETED AND CHARTED. ORIENTED TO ROOM & CALL LIGHT. PT ON RA. PT ON MEDSURG STATUS. PT UPSTANDBY. PT COMPLAINED OF NAUSEA & HEADACHE-MED GIVEN PER MAR. CALL LIGHT WITHIN REACH.
[2019-12-28 08:00] VITALS: BP 111/83
[2019-12-28 11:29] LABS: ABSOLUTE EOSINOPHILS 0.1 thou/uL (0.0-0.7); ABSOLUTE LYMPHOCYTES 0.8 thou/uL (0.8-5.3); ABSOLUTE MONOCYTES 0.7 thou/uL (0.0-1.2); ABSOLUTE NEUTROPHILS 3.5 thou/uL (1.6-8.1); BASOPHILS 0.5 %; EOSINOPHILS 1.1 %; HEMATOCRIT 39.1 % (37.0-47.0); HEMOGLOBIN 13.3 gm/dL (12.0-15.0); LYMPHOCYTES 16.3 %; MCH 30.9 pg (26.0-34.0); MCV 90.9 fL (80.0-100.0); MONOCYTES 14.3 %; NUCLEATED RBCS 0 /100WBC; PLATELET COUNT* 186 thou/uL (150-400); POLYS 67.8 %; RDW-CV 13.2 % (10.5-14.5); WBC 5.1 thou/uL (4.0-11.0)
[2019-12-28 11:38] LABS: CALCIUM 8.3 mg/dL (8.5-10.1); CREATININE 0.9 mg/dL (0.6-1.3); MAGNESIUM 2.1 mg/dL (1.8-2.4)
[2019-12-28 11:45] LABS: POTASSIUM 2.7 mmol/L (3.5-5.1)
[2019-12-28 12:00] VITALS: BP 150/101
[2019-12-28 16:00] VITALS: BP 139/91
--- NOTE | 2019-12-28 16:27 | NUR ---
CM SPOKE TO THE PT TO DISCUSS HIS HOME SITUATION, DISCHARGE PLANNING, AND TO INFORM OF THE ROLE OF CM. PT A&O, AND INDEPENDENT WITH ADL'S. PT RESIDES AT HOME WITH HER DTR. SHE IS THE PT'S CAREGIVER AND SHE ASSIST THE PT WITH COOKING, CLEANING, AND TRANSPORTATION. PT OWNS A CANE THAT SHE OCCATIONALLY USES. PT HAS 0 HX OF HH OR SNF. PT PLANS TO RETURN HOME AT D/C AND WILL NEED CAB VOUCHER FOR TRANSPORT THE PT'S DTR IS OUT OF TOWM. CM WILL REMAIN AVAILABLE TO ASSIST AND FOLLOW.
[2019-12-28 20:00] VITALS: BP 136/72
[2019-12-29 04:48] LABS: HEMATOCRIT 35.5 % (37.0-47.0); HEMOGLOBIN 12.2 gm/dL (12.0-15.0); MCHC 34.3 g/dL (28.0-37.0); MCV 90.4 fL (80.0-100.0); MPV 8.8 fl. (7.2-11.1); RBC 3.93 mil/uL (4.20-5.00); RDW-CV 12.6 % (10.5-14.5); WBC 4.2 thou/uL (4.0-11.0)
[2019-12-29 05:04] LABS: CALCIUM 8.5 mg/dL (8.5-10.1); CREATININE 0.7 mg/dL (0.6-1.3)
[2019-12-29 07:40] VITALS: BP 111/79
--- NOTE | 2019-12-29 17:39 | NUR ---
PATIENT RESTING IN BED. PATIENT IS UP AD ANGELY IN ROOM. PATIENTR HAS DENIED ANY ABDOMINAL PAIN OR NAUSEA TODAY. PATIENT IS TOLERATING REGULAR DIET. PATIENT DOES STATE DIARRHEA AFTER EATING. AWAITING AMI SAMPLE AT THIS TIME. PATIENT DENIES ANY NEEDS AT THIS TIME. CALL LIGHT WITHIN REACH.
[2019-12-29 20:00] VITALS: BP 120/72
--- NOTE | 2019-12-30 06:10 | NUR ---
PATIENT ALERT/ORIENTED X4, PLEASANT. ASSESSMENT COMPLETE DOCUMENTED. PT C/O JOINT PAIN; PAIN MEDICATION GIVEN. PT LATER REQUESTING SEROQUEL FOR SLEEP BUT NOT ORDERED. ATIVAN GIVEN AND PT ABLE TO SLEEP. PT UP WITH STEADY GAIT TO BATHROOM. FLUIDS INFUSING PER DR ORDER. PT DENIES NEEDS AT THIS TIME. FREQUENTLY USED ITEMS AND CALL LIGHT WITHIN REACH. SIDERAILS UPX2. WILL CONTINUE TO MONITOR.
[2019-12-30] MEDS ORDERED: MACROBID 100 M100 M1 PO (08:40)
[2019-12-30] MEDS ORDERED: PANTOPRAZOLE SO40 M1 PO (08:41)
[2019-12-30 09:10] VITALS: BP 118/82
[2019-12-30 10:02] VITALS: BP 120/72
--- NOTE | 2019-12-30 11:25 | NUR ---
PATIENT DISCHARGED TO HOME. DISCHARGE PAPERS REVIEWED AND SIGNED. PRESCRIPTIONS TRANSMITTED TO PHARMACY AND INFORMATION SHEETS GIVEN. IV REMOVED. PATIENT DENIES ANY FURTHER NEEDS. PATIENT TAKEN BY WHEELCHAIR TO EXIT. LEFT WITH DAUGHTER.
== END 2019-12-30 11:25 | disposition home or self-care (01) | DRG 690 ==
LOC: M.ERS 20:05 → M.TBA-ER 23:42 → M.2W 23:42 → M.TBA-ER 23:42 → M.2W 12-28 02:28 → M.3W 12-28 19:18
PROVIDERS: Emergency Medicine; Internal Medicine; ADMIT Internal Medicine; ATTEND Internal Medicine
DX: N39.0 Urinary tract infection, site not specified (principal); B96.20 Unspecified Escherichia coli [E. coli] as the cause of diseases classified elsewhere; E87.6 Hypokalemia; E78.5 Hyperlipidemia, unspecified; K21.9 Gastro-esophageal reflux disease without esophagitis; F32.9 Major depressive disorder, single episode, unspecified; M79.7 Fibromyalgia; M19.90 Unspecified osteoarthritis, unspecified site; K58.0 Irritable bowel syndrome with diarrhea; F41.9 Anxiety disorder, unspecified; E78.00 Pure hypercholesterolemia, unspecified; E86.0 Dehydration; Z88.8 Allergy status to other drugs, medicaments and biological substances; Z03.818 Encounter for observation for suspected exposure to other biological agents ruled out

== ENCOUNTER 2020-07-09 17:34 | Inpatient (IN) | payer MEDICAID ==
[~2020-07-09] VITALS: Ht 170.2 cm; Wt 75.5 kg
[~2020-07-09 17:34] MED LIST changes: +BACTRIM DS TAB1 EACH PO; +HYDROCODON-ACE1 EAC8 PO; +MACROBID 100 M100 M1 PO; +PANTOPRAZOLE SO40 M1 PO; +SEROPHENE50 MG PO; +VITAMIN D310 MCG PO; +ZOFRAN ODT4 MG PO; +ZOFRAN4 MG PO
[2020-07-09 17:45] VITALS: BP 112/85
[2020-07-09 18:17] LABS: ABSOLUTE EOSINOPHILS 0.1 thou/uL (0.0-0.7); ABSOLUTE LYMPHOCYTES 1.5 thou/uL (0.8-5.3); ABSOLUTE MONOCYTES 0.6 thou/uL (0.0-1.2); ABSOLUTE NEUTROPHILS 3.3 thou/uL (1.6-8.1); BASOPHILS 0.7 %; EOSINOPHILS 1.6 %; HEMATOCRIT 37.8 % (37.0-47.0); HEMOGLOBIN 12.8 gm/dL (12.0-15.0); LYMPHOCYTES 27.1 %; MCH 30.6 pg (26.0-34.0); MCV 90.1 fL (80.0-100.0); MONOCYTES 11.6 %; NUCLEATED RBCS 0 /100WBC; PLATELET COUNT* 232 thou/uL (150-400); WBC 5.5 thou/uL (4.0-11.0)
[2020-07-09 18:26] LABS: CALCIUM 9.1 mg/dL (8.5-10.1); CREATININE 0.7 mg/dL (0.6-1.3)
[2020-07-09 18:27] LABS: POTASSIUM 2.9 mmol/L (3.5-5.1)
[2020-07-09 18:30] LABS: APTT 24.1 Seconds (25.0-31.3); PROTIME 10.7 Seconds (9.20-11.50)
[2020-07-09 18:37] LABS: ALBUMIN 3.7 g/dL (3.4-5.0); TOTAL BILIRUBIN 0.9 mg/dL (<0.1-1.0); TOTAL PROTEIN 7.5 g/dL (6.4-8.2)
[2020-07-09 19:12] LABS: URINE BILIRUBIN NEGATIVE (Negative); URINE BLOOD TRACE (Negative); URINE CLARITY CLEAR; URINE COLOR YELLOW; URINE GLUCOSE-RANDOM NEGATIVE (Negative); URINE KETONES 1+ (Negative); URINE LEUKOCYTES-REFLEX NEGATIVE (Negative); URINE NITRITE-REFLEX NEGATIVE (Negative); URINE PROTEIN NEGATIVE (Negative); URINE UROBILINOGEN 0.2 E.U./dl (0.2-1.0)
[2020-07-09 19:21] LABS: AMP/METHAMP Negative (Negative); BARBITURATES Negative (Negative); BENZODIAZEPINES Negative (Negative); COCAINE Negative (Negative); METHADONE Negative (Negative); OPIATES Negative (Negative); PCP Negative (Negative); THC Negative (Negative)
[2020-07-09 20:13] LABS: CALCIUM 9.4 mg/dL (8.5-10.1); CREATININE 0.7 mg/dL (0.6-1.3)
[2020-07-09 22:30] VITALS: BP 142/86
[2020-07-09 22:33] VITALS: BP 142/86
[2020-07-10] VITALS (8 sets, daily range): BP systolic 135–156; BP diastolic 79–98
[2020-07-10 01:07] LABS: CHOLESTEROL 317 mg/dL (<200); HDL CHOLESTEROL 99 mg/dL (>40); LDL CHOLESTEROL 195 mg/dL (<100); SERUM ASSESSMENT CLEAR; TC:HDL 3.2 Ratio (Not establshd); TRIGLYCERIDE 118 mg/dL (<150); VLDL 24 mg/dL (<40)
--- NOTE | 2020-07-10 09:43 | EKG ---
[place] [address] ELECTROCARDIOGRAM REPORT Name: PHUONGNAVEEN Ramírez Room: [address] ADM IN .R.#: [id number] Admission: 07/09/20 Attend Phys: Carlos Jay, Discharge: Date of : 57 Date of Service: 07/09/20 1759 Report #: [id number] THIS REPORT FOR: //name// [facility] ED Test Date: 2020-07-09 Test Time: 17:59:14 Pat Name: NAVEEN BACA Department: Room: [facility] Gender: F Data Management: AMARI : 1955 Requested By: Kevin Lee Order Number: [id number] MD: Kev Jennings Measurements Intervals [place] Rate: 73 P: 69 VA: 145 QRS: -30 QRSD: 136 T: 22 QT: 424 QTc: 468 Interpretive Statements Sinus rhythm Right bundle branch block Baseline wander in lead(s) II,III,aVF Compared to ECG 04/25/2019 15:54:00 Left anterior fascicular block no longer present Electronically Signed On 07-10-2020 9:43:24 LOAN BROKER by Kev Jennings [email or web address] <ELECTRONICALLY SIGNED> By: Kev Jennings MD, FACC 07/10/20 0943 175 1759 Kev Jennings MD, FAC /EPI
[2020-07-10 10:44] LABS: CALCIUM 8.7 mg/dL (8.5-10.1); CREATININE 0.6 mg/dL (0.6-1.3); POTASSIUM 3.8 mmol/L (3.5-5.1)
--- NOTE | 2020-07-10 14:04 | 2DMMODE ---
[place] [address] 2 D/M-MODE ECHOCARDIOGRAM Name: NAVEEN BACA Room: [address] IN [facility]#: [id number] Admission: 07/09/20 Attend Phys: Carlos Jay, Discharge: Date of : 57 Date of Service: 07/10/20 1404 Report #: [id number] THIS REPORT FOR: cc: Clare Rivreo MD,Clare Jennings,Kev Correa MD [facility] ~ APPROVED REPORT Study performed: 07/10/2020 10:32:00 EXAM: Comprehensive 2D, Doppler, and color-flow Echocardiogram Patient Location: In-Patient Room #: [facility] Status: routine BSA: 1.88 HR: 63 bpm BP: 156/95 mmHg Rhythm: NSR Other Information Study Quality: Good Indications CVA/TIA Echo Enhancing Agent Indication: Rule out Shunt Agent(s) / Amount(s) Used: Agitated Saline 10 cc 2D Dimensions IVSd: 10.45 (7-11mm) LVOT Diam: 19.20 (18-24mm) LVDd: 53.94 mm PWd: 10.62 (7-11mm) Ascending Ao: 34.25 (22-36mm) LVDs: 34.35 (25-40mm) Aortic Root: 33.99 mm Volumes Left Atrial Volume (Systole) LA ESV Index: 50.00 mL/m2 Aortic Valve AoV Peak Shaan.: 1.40 m/s AO Peak Gr.: 7.86 mmHg LVOT Max P.87 mmHg AO Mean Gr.: 3.94 mmHg LVOT Mean [place]72 [place] [address] 2 D/M-MODE ECHOCARDIOGRAM Name: EYAD BACALizzie Ramírez Room: [address] IN .R.#: [id number] Admission: 07/09/20 Attend Phys: Carlos Jay, Discharge: Date of : 57 Date of Service: 07/10/20 1404 Report #: [id number] LVOT Max V: 0.98 m/s AO V2 VTI: 27.69 cm LVOT Mean V: 0.59 m/s IDNESH (VTI): 2.28 cm2 LVOT V1 VTI: 21.78 cm Mitral Valve E/A Ratio: 1.28 MV Decel. Time: 243.45 ms MV E Max Shaan.: 0.64 m/s MV PHT: 70.60 ms MVA (PHT): 3.12 cm2 TDI E/Lateral E': 5.82 E/Medial E': 6.40 Medial E' Shaan.: 0.10 m/s Lateral E' Shaan.: 0.11 m/s Pulmonary Valve PV Peak Shaan.: 0.92 m/s PV Peak Gr.: 3.41 mmHg Tricuspid Valve RAP Estimate: 5.00 mmHg TR Peak Gr.: 20.23 mmHg RVSP: 25.00 mmHg PA Pressure: 25.00 mmHg Left Ventricle The left ventricle is normal size. There is normal LV segmental wall motion. There is normal left ventricular wall thickness. Left ventricular systolic function is normal. LVEF is 55-60%. Transmitral Doppler flow pattern suggests impaired LV relaxation. Right Ventricle The right ventricle is normal size. The right ventricular systolic function is normal. Atria Left atrium is moderately dilated. The interatrial septum is intact with no evidence for an atrial septal defect. The right atrium size is normal. Aortic Valve The aortic valve is normal in structure. Trace aortic regurgitation. There is no aortic valvular stenosis. Mitral Valve The mitral valve is normal in structure. Mild mitral regurgitation. No evidence [place] [address] 2 D/M-MODE ECHOCARDIOGRAM Name: NAVEEN BACA Room: [address] IN ..#: [id number] Admission: 07/09/20 Attend Phys: Carlos Jay, Discharge: Date of : 57 Date of Service: 07/10/20 1404 Report #: [id number] Tricuspid Valve The tricuspid valve is normal in structure. Trace tricuspid regurgitation. No pulmonary hypertension. Pulmonic Valve The pulmonary valve is normal in structure. Trace pulmonic regurgitation. Great Vessels The aortic root is normal in size. IVC is normal in size and collapses >50% with inspiration. Pericardium There is no pericardial effusion. <Conclusion> The left ventricle is normal size. There is normal left ventricular wall thickness. LVEF is 55-60%. Transmitral Doppler flow pattern suggests impaired LV relaxation. The interatrial septum is intact with no evidence for an atrial septal defect. Left atrium is moderately dilated. Trace aortic regurgitation. Mild mitral regurgitation. Trace tricuspid regurgitation. No pulmonary hypertension. Trace pulmonic regurgitation. IVC is normal in size and collapses >50% with inspiration. <ELECTRONICALLY SIGNED> By: Kev Jennings MD, FACC 07/10/20 1404 1404 1404 Kev Jennings MD, FACC /INF
[2020-07-10] MEDS ORDERED: REMERON 30 MG T30 M1 PO (15:55)
[2020-07-10] MEDS ORDERED: AMITRIPTYLINE H25 M2 PO (15:57)
[2020-07-10] MEDS ORDERED: SEROQUEL 50 MG50 M1 PO (15:57)
[2020-07-11] VITALS: BP 143/87
[2020-07-11 02:06] LABS: GLYCOHEMOGLOBIN (HGB A1C) 5.3 % (4.8-5.6)
[2020-07-11 04:00] VITALS: BP 143/91
[2020-07-11 04:28] LABS: ABSOLUTE LYMPHOCYTES 0.6 thou/uL (0.8-5.3); ABSOLUTE MONOCYTES 0.6 thou/uL (0.0-1.2); ABSOLUTE NEUTROPHILS 4.7 thou/uL (1.6-8.1); BASOPHILS 0.2 %; LYMPHOCYTES 10.9 %; MCH 30.7 pg (26.0-34.0); MCHC 33.3 g/dL (28.0-37.0); MONOCYTES 9.3 %; MPV 8.8 fl. (7.2-11.1); NUCLEATED RBCS 0 /100WBC; PLATELET COUNT* 206 thou/uL (150-400); POLYS 79.6 %; RBC 4.24 mil/uL (4.20-5.00); WBC 5.9 thou/uL (4.0-11.0)
[2020-07-11 04:49] LABS: ALBUMIN 3.6 g/dL (3.4-5.0); CALCIUM 9.1 mg/dL (8.5-10.1); CREATININE 0.7 mg/dL (0.6-1.3); MAGNESIUM 2.5 mg/dL (1.8-2.4); PHOSPHORUS* 1.8 mg/dL (2.5-4.9); POTASSIUM 4.4 mmol/L (3.5-5.1); TOTAL BILIRUBIN 1.3 mg/dL (<0.1-1.0); TOTAL PROTEIN 7.5 g/dL (6.4-8.2)
[2020-07-11 08:00] VITALS: BP 151/101
[2020-07-11] MEDS ORDERED: NEURONTIN 300M300 M2 PO (08:23)
[2020-07-11 08:59] VITALS: BP 151/101
[2020-07-11] MEDS ORDERED: CYMBALTA30 MG PO (11:16)
[2020-07-11 15:33] VITALS: BP 151/101
== END 2020-07-11 12:45 | disposition home or self-care (01) | DRG 434 ==
LOC: M.ERS 17:34 → M.2W 18:45 → M.TBA-ER 18:45 → M.2W 22:18
PROVIDERS: Emergency Medicine Emergency Medical Services; ADMIT Internal Medicine; ATTEND Internal Medicine
DX: K70.9 Alcoholic liver disease, unspecified (principal); E78.00 Pure hypercholesterolemia, unspecified; K21.9 Gastro-esophageal reflux disease without esophagitis; F32.9 Major depressive disorder, single episode, unspecified; F41.9 Anxiety disorder, unspecified; M19.90 Unspecified osteoarthritis, unspecified site; Z20.822 Contact with and (suspected) exposure to COVID-19; E87.6 Hypokalemia; M79.7 Fibromyalgia; G43.909 Migraine, unspecified, not intractable, without status migrainosus; R27.0 Ataxia, unspecified; F10.20 Alcohol dependence, uncomplicated; Z88.8 Allergy status to other drugs, medicaments and biological substances; Z79.899 Other long term (current) drug therapy

== ENCOUNTER 2020-10-27 17:01 | Emergency (ER) | payer MEDICAID ==
[~2020-10-27] VITALS: Ht 172.7 cm; Wt 73.0 kg
[~2020-10-27 17:01] MED LIST changes: +AMITRIPTYLINE H25 M2 PO; +NEURONTIN 300M300 M2 PO; +REMERON 30 MG T30 M1 PO; +SEROQUEL 50 MG50 M1 PO
[2020-10-27] MEDS ORDERED: NAUSEA (17:13)
[2020-10-27 18:31] LABS: ABSOLUTE EOSINOPHILS 0.1 thou/uL (0.0-0.7); ABSOLUTE LYMPHOCYTES 0.7 thou/uL (0.8-5.3); ABSOLUTE MONOCYTES 0.6 thou/uL (0.0-1.2); ABSOLUTE NEUTROPHILS 7.2 thou/uL (1.6-8.1); BASOPHILS 0.4 %; EOSINOPHILS 0.9 %; HEMATOCRIT 39.5 % (37.0-47.0); HEMOGLOBIN 13.6 gm/dL (12.0-15.0); LYMPHOCYTES 8.5 %; MCH 31.3 pg (26.0-34.0); MCHC 34.3 g/dL (28.0-37.0); MCV 91.2 fL (80.0-100.0); MONOCYTES 7.2 %; MPV 8.3 fl. (7.2-11.1); NUCLEATED RBCS 0 /100WBC; PLATELET COUNT* 223 thou/uL (150-400); RBC 4.33 mil/uL (4.20-5.00); RDW-CV 12.4 % (10.5-14.5); WBC 8.7 thou/uL (4.0-11.0)
[2020-10-27 18:40] LABS: CALCIUM 8.9 mg/dL (8.5-10.1); CREATININE 0.7 mg/dL (0.6-1.3); POTASSIUM 3.4 mmol/L (3.5-5.1)
[2020-10-27 18:50] LABS: ALBUMIN 3.8 g/dL (3.4-5.0); MAGNESIUM 1.6 mg/dL (1.8-2.4); TOTAL BILIRUBIN 1.3 mg/dL (<0.1-1.0); TOTAL PROTEIN 7.6 g/dL (6.4-8.2)
[2020-10-27 20:09] LABS: URINE BILIRUBIN NEGATIVE (Negative); URINE BLOOD NEGATIVE (Negative); URINE CLARITY CLEAR; URINE COLOR YELLOW; URINE GLUCOSE-RANDOM NEGATIVE (Negative); URINE KETONES NEGATIVE (Negative); URINE LEUKOCYTES-REFLEX NEGATIVE (Negative); URINE NITRITE-REFLEX NEGATIVE (Negative); URINE PROTEIN NEGATIVE (Negative); URINE UROBILINOGEN 0.2 E.U./dl (0.2-1.0)
[2020-10-27] MEDS ORDERED: BENTYL 10 MG CA10 M1 PO (20:47)
[2020-10-27] MEDS ORDERED: ZOFRAN ODT4 MG PO (20:47)
[2020-10-27 23:44] VITALS: BP 135/86
--- NOTE | 2020-10-28 09:04 | EKG ---
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1955 Requested By: Fidelina Parr Order Number: [id number] MD: Kev Jennnigs Measurements Intervals [place] Rate: 77 P: 52 TN: 109 QRS: -52 QRSD: 139 T: 4 QT: 425 QTc: 482 Interpretive Statements Sinus rhythm Ventricular premature complex Short TN interval RBBB and LAFB Compared to ECG 07/09/2020 17:59:14 Ventricular premature complex(es) now present Short TN interval now present Left anterior fascicular block now present Electronically Signed On 10-28-2020 9:03:57 CDT by Kev Jennings [email or web address] <ELECTRONICALLY SIGNED> By: Kev Jennings MD, FACC 10/28/2003 182 19 Kev Jennings MD, FAC /EPI
--- NOTE | 2020-10-28 09:07 | EKG ---
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: : 1955 Requested By: Fidelina Parr Order Number: [id number] Sebastián MD: Kev Jennings Measurements Intervals [place] Rate: 67 P: 237 ME: 75 QRS: -90 QRSD: 133 T: 17 QT: 446 QTc: 471 Interpretive Statements Sinus or ectopic atrial rhythm Short [place] interval RBBB and LAFB Compared to ECG 10/27/2020 18:20:20 Ectopic atrial rhythm now present Sinus rhythm no longer present Ventricular premature complex(es) no longer present Electronically Signed On 10-28-2020 9:07:08 CDT by Kev Jennings [email or web address] <ELECTRONICALLY SIGNED> By: Kev Jennings MD, FACC 10/28/20906 54 54 Kev Jennings MD, FAC /EPI
== END 2020-10-27 23:45 | disposition home or self-care (01) ==
LOC: M.ERS 17:01
PROVIDERS: Nurse Practitioner Family
DX: K52.9 Noninfective gastroenteritis and colitis, unspecified (principal); R07.89 Other chest pain; E78.00 Pure hypercholesterolemia, unspecified; K21.9 Gastro-esophageal reflux disease without esophagitis; M79.7 Fibromyalgia; M19.90 Unspecified osteoarthritis, unspecified site; Z98.51 Tubal ligation status; Z88.8 Allergy status to other drugs, medicaments and biological substances

== ENCOUNTER 2020-11-02 18:36 | Inpatient (IN) | payer MEDICAID ==
[~2020-11-02] VITALS: Ht 172.7 cm; Wt 74.8 kg
[~2020-11-02 18:36] MED LIST changes: +BENTYL 10 MG CA10 M1 PO; +NAUSEA
[2020-11-02 18:38] VITALS: BP 146/89
[2020-11-02 21:35] LABS: ABSOLUTE LYMPHOCYTES 0.9 thou/uL (0.8-5.3); ABSOLUTE MONOCYTES 0.7 thou/uL (0.0-1.2); ABSOLUTE NEUTROPHILS 5.8 thou/uL (1.6-8.1); BASOPHILS 0.5 %; EOSINOPHILS 0.1 %; HEMATOCRIT 38.7 % (37.0-47.0); HEMOGLOBIN 13.3 gm/dL (12.0-15.0); LYMPHOCYTES 12.1 %; MCH 31.2 pg (26.0-34.0); MCHC 34.3 g/dL (28.0-37.0); MONOCYTES 9.8 %; MPV 8.5 fl. (7.2-11.1); NUCLEATED RBCS 0 /100WBC; PLATELET COUNT* 210 thou/uL (150-400); POLYS 77.5 %; RBC 4.25 mil/uL (4.20-5.00); RDW-CV 12.3 % (10.5-14.5); WBC 7.5 thou/uL (4.0-11.0)
[2020-11-02 22:04] LABS: CALCIUM 8.6 mg/dL (8.5-10.1); CREATININE 0.7 mg/dL (0.6-1.3); POTASSIUM 3.5 mmol/L (3.5-5.1)
[2020-11-02 22:08] LABS: ALBUMIN 3.5 g/dL (3.4-5.0); TOTAL BILIRUBIN 0.7 mg/dL (<0.1-1.0); TOTAL PROTEIN 7.3 g/dL (6.4-8.2)
[2020-11-02 22:45] VITALS: BP 136/88
[2020-11-03 04:00] VITALS: BP 139/88
[2020-11-03 08:00] VITALS: BP 136/91
--- NOTE | 2020-11-03 10:52 | EKG ---
[place] [address] ELECTROCARDIOGRAM REPORT Name: BACANAVEEN Room: [address] ADM IN .R.#: [id number] Admission: 11/03/20 Attend Phys: Shyam Hunter Discharge: Date of : 57 Date of Service: 11/02/202001 Report #: [id number] THIS REPORT FOR: //name// 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1955 Requested By: Shannan Lee Order Number: [id number] MD: Alfie Currie Measurements Intervals [place] Rate: 73 P: 73 NM: 137 QRS: -45 QRSD: 139 T: 11 QT: 446 QTc: 492 Interpretive Statements Sinus rhythm RBBB and LAFB Compared to ECG 10/27/2020 20:55:51 Ectopic atrial rhythm no longer present Short NM interval no longer present Electronically Signed On 11-03-2020 10:52:09 CDT by Alfie Currie [email or web address] <ELECTRONICALLY SIGNED> By: Alfie Currie MD, [facility] 11/03/20 1052 01 01 Alfie Currie MD, [facility] /EPI
[2020-11-03] MEDS ORDERED: NORCO5 PO (12:00)
[2020-11-03 15:18] VITALS: BP 136/91
== END 2020-11-03 18:30 | disposition home or self-care (01) | DRG 84 ==
LOC: M.ERS 18:36 → M.TBA-ER 21:26 → M.2W 22:21
PROVIDERS: Personal Emergency Response Attendant; ADMIT Internal Medicine; ATTEND Internal Medicine
DX: S06.9X9A Unspecified intracranial injury with loss of consciousness of unspecified duration, initial encounter (principal); Z20.822 Contact with and (suspected) exposure to COVID-19; E78.00 Pure hypercholesterolemia, unspecified; K21.9 Gastro-esophageal reflux disease without esophagitis; F32.9 Major depressive disorder, single episode, unspecified; M79.7 Fibromyalgia; K58.9 Irritable bowel syndrome, unspecified; M19.90 Unspecified osteoarthritis, unspecified site; F41.9 Anxiety disorder, unspecified; E86.0 Dehydration; W10.8XXA Fall (on) (from) other stairs and steps, initial encounter; Y93.01 Activity, walking, marching and hiking; S92.312A Displaced fracture of first metatarsal bone, left foot, initial encounter for closed fracture; S92.322A Displaced fracture of second metatarsal bone, left foot, initial encounter for closed fracture; S92.332A Displaced fracture of third metatarsal bone, left foot, initial encounter for closed fracture; S92.342A Displaced fracture of fourth metatarsal bone, left foot, initial encounter for closed fracture; Z79.899 Other long term (current) drug therapy; Z88.8 Allergy status to other drugs, medicaments and biological substances; Z80.0 Family history of malignant neoplasm of digestive organs; Y92.89 Other specified places as the place of occurrence of the external cause; Y99.8 Other external cause status

== ENCOUNTER 2020-12-28 17:31 | Emergency (ER) | payer MEDICAID ==
[~2020-12-28] VITALS: Ht 167.6 cm; Wt 72.6 kg
[~2020-12-28 17:31] MED LIST changes: +NORCO5 PO
[2020-12-28] MEDS ORDERED: NORCO5 PO (20:10)
[2020-12-28] MEDS ORDERED: FLEXERIL PO (20:15)
[2020-12-28 21:10] VITALS: BP 100/65
== END 2020-12-28 21:11 | disposition home or self-care (01) ==
LOC: M.ERS 17:31
DX: S16.1XXA Strain of muscle, fascia and tendon at neck level, initial encounter (principal); S06.0X0A Concussion without loss of consciousness, initial encounter; S39.012A Strain of muscle, fascia and tendon of lower back, initial encounter; S29.012A Strain of muscle and tendon of back wall of thorax, initial encounter; S80.02XA Contusion of left knee, initial encounter; S80.01XA Contusion of right knee, initial encounter; M25.551 Pain in right hip; M25.552 Pain in left hip; M25.511 Pain in right shoulder; M25.512 Pain in left shoulder; E78.00 Pure hypercholesterolemia, unspecified; K21.9 Gastro-esophageal reflux disease without esophagitis; M79.7 Fibromyalgia; M19.90 Unspecified osteoarthritis, unspecified site; Z98.51 Tubal ligation status; Y04.2XXA Assault by strike against or bumped into by another person, initial encounter; Y93.89 Activity, other specified; Y92.89 Other specified places as the place of occurrence of the external cause; Y99.8 Other external cause status